=== PATIENT | male | born 1975 | race Caucasian/White ===

== ENCOUNTER 2018-04-20 13:46 | Emergency (ER) | payer OTHER ==
[~2018-04-20] VITALS: Ht 198.1 cm; Wt 111.1 kg
[2018-04-20 13:54] VITALS: BP 152/88
[2018-04-20] MEDS ORDERED: NACL 0.9% 1,000 ML IV ONE (14:30)
[2018-04-20 14:49] LABS: BASOPHILS % (AUTO) 0.6 % (0.0-2.0); EOSINOPHILS # (AUTO) 0.3 K/uL (0-0.4); EOSINOPHILS % (AUTO) 5.2 % (0.0-4.0); HEMATOCRIT 38.5 % (36-52); HEMOGLOBIN 12.9 g/dL (12.0-18.0); LYMPHOCYTES # (AUTO) 2.1 K/uL (2.0-11.5); LYMPHOCYTES % (AUTO) 40.2 % (20.5-51.1); MEAN CORPUSCULAR HEMOGLOBIN 27 pg (27-31); MEAN CORPUSCULAR HGB CONC 34 g/dL (33-37); MEAN CORPUSCULAR VOLUME 80.1 fL (80-94); MONOCYTES # (AUTO) 0.6 K/uL (0.8-1.0); MONOCYTES % (AUTO) 11.1 % (1.7-9.3); NEUTROPHILS # (AUTO) 2.2 K/uL (1.8-7.7); NEUTROPHILS % (AUTO) 42.9 % (42.2-75.2); PLATELET COUNT (AUTO) 219 K/uL (140-450); RED BLOOD CELL COUNT(AUTO) 4.81 MIL/uL (4.20-6.10); RED CELL DISTRIBUTION WIDTH 13.1 % (11.6-13.7); WHITE BLOOD COUNT (AUTO) 5.1 K/uL (4.8-10.8)
[2018-04-20 16:01] LABS: ANION GAP 13.4 (8-16); CARBON DIOXIDE 26.4 mmol/L (21-32); CREATININE 1.5 mg/dL (0.7-1.3); POTASSIUM 3.8 mmol/L (3.5-5.1)
[2018-04-20 16:07] LABS: TOTAL BILIRUBIN 0.3 mg/dL (0.0-1.0)
[2018-04-20 16:08] LABS: ALBUMIN 3.6 g/dL (3.4-5.0)
[2018-04-20 17:17] VITALS: BP 148/85
== END 2018-04-20 17:17 | disposition home or self-care (01) ==
LOC: MED 13:46
DX: R07.89 Other chest pain (principal); Z98.890 Other specified postprocedural states
CPT/HCPCS: 36415; 71045; 80053; 84484; 85025; 93005; 99285; J7030; Q0092